=== PATIENT | male | born 1990 | race Caucasian/White ===

== ENCOUNTER 2018-05-15 09:35 | Emergency (ER) | payer OTHER ==
[2018-05-15] MEDS: DEXAMETHASONE (1 MG/ML PO SYG) PO (10:38)
[2018-05-15] MEDS: ALBUTEROL HFA 8 GM INHALER INH (10:45)
== END 2018-05-15 11:39 | disposition home or self-care (01) ==
LOC: FTE 09:35
DX: J40 Bronchitis, not specified as acute or chronic (principal)
CPT/HCPCS: 71045; 99283-25